=== PATIENT | male | born 1925 | race Caucasian/White ===

== ENCOUNTER 2016-05-20 05:46 | Day surgery (SDC) | payer MEDICARE, OTHER ==
[~2016-05-20] VITALS: Ht 180.3 cm; Wt 77.5 kg
[~2016-05-20 05:46] MED LIST: AMLO5TAB96 PO; ASPI81 PO; CLOP75 PO; ROSU5 PO; [UNRECOGNIZED DRUG - CODE] PO
[2016-05-20] MEDS ORDERED: NS 1000P @30 MLS/HR (KVO) IV SCH (06:15)
[2016-05-20] MEDS ORDERED: diphenhydrAMINE HCL 50 MG CAP PO SCH (06:15)
[2016-05-20 06:34] VITALS: BP 132/82; PULSE 82; RESP 16; TEMP 98; O2SAT 94
[2016-05-20] MEDS ORDERED: NITR1SUB3 SL (06:41)
[2016-05-20] MEDS ORDERED: RAMI5CAP PO (06:41)
[2016-05-20] MEDS ORDERED: POTA-243 PO (06:41)
[2016-05-20] MEDS ORDERED: HYDR12.56 PO (06:41)
[2016-05-20] MEDS ORDERED: ASPI325T PO (06:41)
[2016-05-20] MEDS ORDERED: DONE10TA7 PO (06:41)
[2016-05-20] MEDS ORDERED: NAME10TA PO (06:41)
[2016-05-20] MEDS ORDERED: ATOR20TA15 PO (06:41)
[2016-05-20] MEDS ORDERED: MULT1TAB84 PO (06:41)
[2016-05-20] MEDS ORDERED: AMLO5TAB2 PO (06:41)
[2016-05-20 06:49] LABS: AUTOMATED NEUTROPHIL # 4.2 TH/MM3 (1.8-7.7); BASOPHIL # 0.1 TH/MM3 (0-0.2); BASOPHIL % 0.7 % (0.0-2.0); EOSINOPHIL # 0.6 TH/MM3 (0-0.4); EOSINOPHIL % 7.9 % (0.0-4.0); HEMATOCRIT 40.7 % (39.0-51.0); HEMO FLAGS DIFF FINAL; LYMPH % 23.7 % (9.0-44.0); LYMPHOCYTE # 1.7 TH/MM3 (1.0-4.8); MEAN CELL VOLUME 90.5 FL (80.0-100.0); MEAN CORPUSCULAR HGB CONC 34.3 % (32.0-36.0); MONO % 9.9 % (0.0-8.0); NEUT % 57.8 % (16.0-70.0); PLATELET COUNT 173 TH/MM3 (150-450); RED CELL DISTRIBUTION WIDTH 13.2 % (11.6-17.2); WHITE BLOOD COUNT 7.2 TH/MM3 (4.0-11.0)
[2016-05-20 06:59] LABS: APTT (PATIENT) 28.9 SEC (24.3-30.1); INTERNATIONAL NORMALIZED RATIO 1.1 RATIO
[2016-05-20 07:03] LABS: BICARBONATE 28.3 MEQ/L (21.0-32.0); POTASSIUM 3.6 MEQ/L (3.5-5.1)
[2016-05-20] MEDS ORDERED: HEPARIN-NS/PF INJ 500 ML ONE (08:20)
[2016-05-20] MEDS ORDERED: MIDAZOLAM HCL 2 MG/2 ML VIAL ONE (08:22)
[2016-05-20] MEDS ORDERED: HYDROCORTISONE SOD SUCCINATE 100 MG VIAL ONE (08:53)
[2016-05-20] MEDS ORDERED: FAMOTIDINE 20 MG/2 ML VIAL ONE (08:53)
--- NOTE | 2016-05-20 09:15 | EKG ---
Date Performed: 05/20/2016 Time Performed: 06:44:36 PTAGE: 89 years EKG: Sinus rhythm with 1st degree A-V block Prolonged QT interval Lateral ST-T changes are nonspecific Abnormal ECG NO PREVIOUS TRACING DOCTOR: Roger Ruiz Interpretating Date/Time 05/20/2016 09:14:48
[2016-05-20] MEDS ORDERED: ATROPINE SULFATE 1 MG/ML VIAL IV PRN (09:30)
[2016-05-20] MEDS ORDERED: LIDOCAINE HCL 1% 50 ML VIAL INFIL PRN (09:30)
[2016-05-20] MEDS ORDERED: ONDANSETRON HCL 4 MG/2 ML VIAL IV PRN (09:30)
[2016-05-20] MEDS ORDERED: BACITRACIN OINT 0.9 GM PKT TOP ONE (10:00)
[2016-05-20] MEDS ORDERED: MISC INFORMATION XX ONE (10:00)
--- NOTE | 2016-05-20 10:14 | MA ---
cc: RUBEN SUAREZ DATE: May 20, 2016 1927 PROCEDURE PERFORMED 1. Left heart catheterization. 2. Selective right and left coronary angiography. 3. Selective right common femoral artery angiography. INDICATION Preop evaluation for aortic valve replacement/symptomatic/NYHA class II. PROCEDURE DESCRIPTION Consent was signed. The patient was brought into the cardiac prosthetics lab technician in a fasting state. The right groin was prepped and draped in sterile fashion using 1% lidocaine for local anesthesia and a micropuncture kit. A 5-[place] sheath was inserted into the right common femoral artery. The right common femoral artery angiography was performed to confirm position of the sheath. Then selective right and left coronary angiography was performed with a JL-4 and a 3DRC. Angiography was taken in multiple views. The patient tolerated the procedure well without complications. Estimated blood loss less was less than 40 ccs. Total contrast used 75 ccs. The right common femoral artery access site was closed with manual pressure. RESULTS Pressures: The aortic pressure was 117/63 with mean arterial pressure of 88. ANGIOGRAPHIC RESULTS 1. The right coronary artery is a dominant vessel. It has a stent in its ostium which has at least 60% ISR. Also, the mid segment of the right coronary artery has 70% lesion right after bifurcation with RV branch which also has 70% lesion proximally. 2. Left main is patent with nonobstructive coronary artery disease. 3. The LAD is a transapical vessel. It has minimal luminal irregularities throughout. It has first and second diagonals which are also patent. 4. The circumflex artery is patent with ATIF III flow. It has a small AV groove segment circ and then has a prominent OM1 which has mid stent which is patent. CONCLUSION 1. Severe symptomatic aortic stenosis. 2. Single vessel coronary artery disease in the right coronary artery with ISR in the stent at the ostium and/or significant lesion in the mid segment of the right coronary artery. RECOMMENDATIONS 89-year-old male with known coronary artery disease, status post stents in the right coronary artery and the circumflex, presented with severe symptomatic aortic stenosis and preserved ejection fraction. He remains in [place] Heart Association classification II with symptoms of dyspnea on exertion. He is not frail and his STS score is less than 4. I will consult cardiac surgery for evaluation for AVR and CABG versus TAVR. I will order PFTs, TAVR CTA, CT surgery consult. MD ARA Contreras/TLChristen /9:37 AM /9:51 AM [facility]ENTERJovi
[2016-05-20] MEDS ORDERED: IOHEXOL 350 MG/ML 100 ML BTL (for Cath Lab) OTHER ONE (12:40)
[2016-05-20] MEDS ORDERED: IOHEXOL 350 MG/ML 10 ML VIAL (for RAD DIAG) IV ONE (15:23)
--- NOTE | 2016-05-20 16:55 | RADRPT ---
EXAM DATE/TIME: 05/20/2016 15:04 [facility] COMPARISON: No previous studies available for comparison. INDICATIONS : Coronary disease. RADIATION DOSE: 42.73 CTDIvol (mGy) MEDICAL HISTORY : Cardiovascular disease. Hypertension. Chronic obstructive pulmonary disease. SURGICAL HISTORY : None. ENCOUNTER: Initial ACUITY: 1 day PAIN SCALE: 0/10 LOCATION: chest TECHNIQUE: Volumetric scanning was performed using a multi-row detector CT scanner. The data was post processed with a variety of visualization algorithms including full volume maximum intensity projection, multi -planar sliding thin slab reformation, curved planar reformation, and surface rendering techniques. Using automated exposure control and adjustment of the mA and/or kV according to patient size, radiat ion dose was kept as low as reasonably achievable to obtain optimal diagnostic quality images. FINDINGS: Thoracic aorta: There is calcification of the aortic annulus and aortic valve leaflets. Maximum dimension of the aort ic root is 28.5 mm. Maximum dimension of the ascending aorta is 32.5 mm. The aortic arch is normal in caliber. The left vertebral originates directly from the arch. The descending thoracic aorta is norm al caliber with scattered atherosclerotic plaquing. Abdominal aorta: The celiac and SMA origins are patent. There are small accessory renal arteries bilaterally. The infr arenal aorta is densely calcified. Maximum dimension of the infrarenal aorta is 1.7 cm. The NICOLE is pa tent. Pelvis: The common iliac, internal iliac and external iliac circulation is diffusely calcified but widely pat ent bilaterally. The external iliac on the left measures approximately 8 mm. The external iliac on th e right is similar in size. The common femorals are patent bilaterally. CT source data: The visualized pulmonary parenchyma demonstrates moderate COPD changes and bilateral effusions. The l ungs are otherwise clear. There is advanced atherosclerotic plaquing within the coronary arteries. Th e solid organs of the abdomen are intact. Note is made of a 8.5 cm cyst arising from the left kidney. There is no retroperitoneal adenopathy. No free air or free fluid is seen. The loops of small large bowel are unremarkable. The prostate is enlarged. CONCLUSION: 1. Calcification of the aortic annulus and valve leaflets. 2. Maximum dimension of the aortic root measures 28.5 mm. The ascending aorta measures 32.5 mm. The t horacic aorta is normal in caliber with only scattered atherosclerotic plaquing. 3. The abdominal aorta is non-aneurysmal. The infrarenal aorta is densely calcified. 4. The iliac circulation is densely calcified but patent bilaterally. The external iliacs measure hugh roximately 8 mm bilaterally. Jose E Dixon MD on May 20, 2016 at 16:47 Board Certified Radiologist. This report was verified electronically.
--- NOTE | 2016-05-20 16:57 | RADRPT ---
EXAM DATE/TIME: 05/20/2016 16:49 [facility] COMPARISON: CTA TRANS AORTIC VALVE REPLACEMENT, May 20, 2016, 15:04. INDICATIONS : Evaluate for pneumonia, pneumothorax, and communicable disease. Pre op for CABG. MEDICAL HISTORY : Heart catherization. SURGICAL HISTORY : None. ENCOUNTER: Initial ACUITY: 1 day PAIN SCORE: 0/10 LOCATION: Bilateral chest FINDINGS: Small bilateral effusions. Mild basilar atelectasis. Patchy interstitial thickening. Cardiac contours are grossly satisfactory. Degenerative changes are present in the spine. CONCLUSION: Patchy interstitial prominence, small bilateral effusions. Mild atelectasis. Tanner Brady MD on May 20, 2016 at 16:54 Board Certified Radiologist. This report was verified electronically.
[2016-05-20 17:00] LABS: BLOOD, URINE NEG (NEG); GLUCOSE,URINE NEG (NEG); KETONE, URINE NEG (NEG); NITRITE,URINE NEG (NEG); URINE COLOR YELLOW (YELLW/STRAW)
[2016-05-20 17:10] LABS: COMMENT (UR) CULT NOT INDICATED; CULTURE IF INDICATED CULT NOT INDICATED
[2016-05-20 18:15] LABS: MRSA PCR NEGATIVE (NEGATIVE); STAPH AUREUS PCR NEGATIVE (NEGATIVE)
--- NOTE | 2016-05-21 09:14 | MB ---
cc: YOGI MCARTHUR MD DATE OF CONSULTATION: 05/20/2016 HISTORY OF PRESENT ILLNESS: The patient is an 89 year-old male, patient of Dr. Ulices Rodriguez, Dr. Raz Duarte, also Dr. Redmond. He has had a history of aortic stenosis that has been followed by echocardiogram but complaining of some exertional shortness of breath, fatigue for the last 6-8 months. He underwent cardiac catheterization today which showed severe symptomatic aortic stenosis, a valve area of 0.8, mean gradient of 38, peek gradient of 65, trivial to mild MR, trivial to mild tricuspid regurgitation with EF of 55%. The patient has single vessel disease in the right coronary artery with In-stent restenosis in the stent at the ostium, approximately 70%. PAST MEDICAL HISTORY: Significant for: 1. Coronary artery disease. He has a total of three stents, the last one was placed in 2011. 2. Mild carotid artery disease. 3. He had a stroke approximately five years ago, had some memory problem post stroke. He has been followed by a neurologist and is on medication for memory. 4. He also has history of some cardiomyopathy, LV dilation at 60 millimeters, likely secondary to his aortic stenosis. 5. Hyperlipidemia. 6. Hypertension. PAST SURGICAL HISTORY: 1. Drug-eluting stent in 2010, 2009. 2. Back surgery. 3. Repair of right rotator cuff surgery. ALLERGIES NEOSPORIN AND SEAFOOD MEDICATIONS 1. Amlodipine. 2. Aspirin. 3. Atorvastatin. 4. Aricept. 5. Hydrochlorothiazide. 6. Klor-Con 7. Namenda. 8. Nitro. FAMILY HISTORY: CVA. SOCIAL HISTORY The patient is . Five children. He does water aerobics, walks. Prior tobacco abuse. Smoked for 35 years, how-zyd-n-half packs, quit 40 years ago, occasional alcoholic beverage at night. REVIEW OF SYSTEMS: In general, no night sweats, fever, heat and cold intolerance. Skin: No psoriasis, itching or hives. HEENT: No blurred vision, hearing loss. Respiratory: Positive for shortness of breath. Cardiovascular: As above in HPI. Gastrointestinal: No diarrhea, vomiting. Genitourinary: No burning frequency, urgency. 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 Endocrinology: No history of diabetes or hypothyroidism. PHYSICAL EXAMINATION: Blood pressure is 130/80, heart rate of 82, respiratory rate 18, room air, sat 95. Patient is awake, alert in no acute distress. Head: Normocephalic, atraumatic. He is slightly hard of hearing. Neck: Supple. No JVD. Heart: Heart sounds S1-S2 regular rate and rhythm. Grade 2/6 systolic murmur. Lungs: Clear to auscultation. No rales, rhonchi or wheezing. Abdomen: Soft, nontender, no masses, no organomegaly. Extremities: No clubbing, cyanosis or edema. LABORATORY DATA: Hemoglobin 14, hematocrit 41, white cell count of 7.2, platelet count of 173, sodium 140, potassium 3.6, BUN of 14, creatinine 1.07, INR 1.1. IMPRESSION: This is an 89 year-old male with a history of aortic stenosis, severe, also one vessel coronary artery disease. Cardiac films have been reviewed by Dr. Yogi Mcarthur. At this time he has discussed all options with the patient and the patient's is very interested and fairly adamant against any open heart surgery, would rather the patient have transcatheter aortic valve replacement which will be evaluated at [facility]. This was discussed with Dr. Manzanares as per Dr. Mcarthur and will have our office try to set up an appointment for evaluation in [place]. Dictated by: RICHELLE Coats Yogi MELLO /4:39 PM /9:12 AM
--- NOTE | 2016-05-26 09:50 | RSPPFT ---
DATE OF PROCEDURE: 05/20/16 COMMENTS: Spirometry demonstrates an FEV1 of 1.4 at 50% of predicted, FVC of 1.9 at 52%, FEF 25-75 at 40%. Post-bronchodilator study was not conducted. Flow volume loops suggest a restrictive defect. IMPRESSION: 1. Moderate obstructive disease. 2. Additional moderately severe restrictive disease.
== END 2016-05-20 17:53 | disposition home or self-care (01) ==
LOC: HDOC 05:46 → HDIC 05:46 → HDOC 17:53
PROVIDERS: ATTEND Radiology Vascular & Interventional Radiology
DX: I35.0 Nonrheumatic aortic (valve) stenosis (principal); I25.10 Atherosclerotic heart disease of native coronary artery without angina pectoris; Z86.73 Personal history of transient ischemic attack (TIA), and cerebral infarction without residual deficits; I42.9 Cardiomyopathy, unspecified; E78.5 Hyperlipidemia, unspecified; I10 Essential (primary) hypertension; R06.02 Shortness of breath
CPT/HCPCS: 71020; 74174; 80048; 81001; 85025; 85610; 85730; 87640; 87641; 93005; 93454; 94010; C1769; C1893; J1644; J1720; J2250; J3010; J7030; Q0163; Q9967